=== PATIENT | male | born 2000 | race American Indian/Alaskan Native ===

== ENCOUNTER 2019-01-15 13:25 | Emergency (ER) | payer MEDICAID ==
[2019-01-15 13:56] VITALS: BP 118/73
--- NOTE | 2019-01-15 14:23 | Event Note ---
ED Screening Note Date of service: 01/15/19 Time: 14:22 ED Screening Note: reports busted lip while playing basketball. Cut to upper lip. TF UTD Cut note to lt upper lip with minimal bleeding and swelling This initial assessment/diagnostic orders/clinical plan/treatment(s) is/are subject to change based on patients health status, clinical progression and re- assessment by fellow clinical providers in the ED. Further treatment and workup at subsequent clinical providers discretion. Patient/guardian urged not to elope from the ED as their condition may be serious if not clinically assessed and managed. Initial orders include:
[2019-01-15] MEDS ORDERED: LIDOCAINE (1%) 10 MG/1 ML VIAL 20 ML MDV INFILTRATI ONE (14:54)
--- NOTE | 2019-01-15 15:58 | Emergency Department Report ---
ED General Adult HPI - General Chief complaint: Wound/Laceration Stated complaint: BUSTED LIP/PAIN Time Seen by Provider: 01/15/19 14:19 Source: patient Mode of arrival: Ambulatory Limitations: No Limitations - History of Present Illness Initial comments: Patient is a 18-year-old male who presents with upper lip pain that occurred while he was playing basketball. He had his lip busted open while someone elbowed him. Patient did not lose consciousness patient states the pain is severe moving his mouth makes it worse nothing makes it better. - Related Data Allergies Allergy/AdvReac Type Severity Reaction Status Date / Time No Known Allergies Allergy Unverified 01/15/19 13:29 ED Review of Systems ROS: Stated complaint: BUSTED LIP/PAIN Other details as noted in HPI Constitutional: denies: chills, fever Eyes: denies: eye pain, eye discharge, vision change ENT: denies: ear pain, throat pain Respiratory: denies: cough, shortness of breath, wheezing Cardiovascular: denies: chest pain, palpitations Endocrine: no symptoms reported Gastrointestinal: denies: abdominal pain, nausea, diarrhea Genitourinary: denies: urgency, dysuria Musculoskeletal: denies: back pain, joint swelling, arthralgia Skin: as per HPI. denies: rash, lesions Neurological: denies: headache, weakness, paresthesias Psychiatric: denies: anxiety, depression Hematological/Lymphatic: denies: easy bleeding, easy bruising ED Physical Exam - General Limitations: No Limitations General appearance: alert, in no apparent distress - Head Head exam: Present: atraumatic, normocephalic - Eye Eye exam: Present: normal appearance - ENT ENT exam: Present: mucous membranes moist, other (2 centimeter lip laceration) - Neck Neck exam: Present: normal inspection - Respiratory Respiratory exam: Present: normal lung sounds bilaterally. Absent: respiratory distress - Cardiovascular Cardiovascular Exam: Present: regular rate, normal rhythm. Absent: systolic murmur, diastolic murmur, rubs, gallop - GI/Abdominal GI/Abdominal exam: Present: soft, normal bowel sounds - Rectal Rectal exam: Present: deferred - Extremities Exam Extremities exam: Present: normal inspection - Back Exam Back exam: Present: normal inspection - Neurological Exam Neurological exam: Present: alert, oriented X3 - Psychiatric Psychiatric exam: Present: normal affect, normal mood - Skin Skin exam: Present: warm, dry, intact, normal color. Absent: rash ED Course Vital Signs 01/15/19 13:55 Temperature 98.3 F Pulse Rate 73 Respiratory 18 Rate Blood Pressure 118/73 [Left] O2 Sat by Pulse 100 Oximetry - Laceration /Wound Repair Head Wound Location: mouth (upper lip) Wound Length (cm): 2 Betadine Prep?: No Anesthesia: 1% Lidocaine Suture Size/Type: 4:0 Number of Sutures: 2 ED Medical Decision Making - Medical Decision Making Chief medical diagnosis: Lip laceration Differential medical diagnosis busted lip, bruised lip I will suture lip give patient oral pain medicine. Patient to avoid chips an extremely hot and cold foods. Patient will be discharged from the emergency department. Additional verbal discharge instructions were given. Critical care attestation.: If time is entered above; I have spent that time in minutes in the direct care of this critically ill patient, excluding procedure time. ED Disposition Clinical Impression: Lip laceration Qualifiers: Encounter type: initial encounter Qualified Code(s): S01.511A - Laceration without foreign body of lip, initial encounter Disposition: DC-01 TO HOME OR SELFCARE Is pt being admited?: No Does the pt Need Aspirin: No Condition: Stable Instructions: Absorbable Suture Care (ED) Referrals: SAM MORALES MD [Staff Physician] - 3-5 Days
[2019-01-15] MEDS ORDERED: oxyCODONE /ACETAMINOPHEN 5-325MG TAB PO ONE (15:59)
== END 2019-01-15 16:15 | disposition home or self-care (01) ==
LOC: ED 13:25
DX: S01.511A Laceration without foreign body of lip, initial encounter (principal); W51.XXXA Accidental striking against or bumped into by another person, initial encounter; Y93.67 Activity, basketball; Y92.310 Basketball court as the place of occurrence of the external cause; Y99.8 Other external cause status
CPT/HCPCS: 99282